=== PATIENT | male | born 1980 ===

== ENCOUNTER 2021-05-11 17:23 | Emergency (ER) | payer OTHER ==
[~2021-05-11] VITALS: Ht 182.9 cm; Wt 81.6 kg
[2021-05-11] MEDS ORDERED: ACETAMINOPHEN 500 MG TAB PO ONE (19:45)
[2021-05-11 21:30] VITALS: BP 117/75
== END 2021-05-11 22:34 | disposition home or self-care (01) ==
LOC: ER 17:23 → EEVIPCON 17:23 → EDBD 17:23 → ER 22:34
DX: S01.81XA Laceration without foreign body of other part of head, initial encounter (principal); W01.0XXA Fall on same level from slipping, tripping and stumbling without subsequent striking against object, initial encounter; Y93.89 Activity, other specified; Y92.89 Other specified places as the place of occurrence of the external cause; Y99.8 Other external cause status
CPT/HCPCS: 70450